=== PATIENT | female | born 1950 | race Caucasian/White ===

== ENCOUNTER → 2020-11-12 | Outpatient (CLI) | payer MEDICARE, BC, OTHER ==
[~2020-11-12] MED LIST: ACETAMINOPHEN500 MG PO; AMARYL 2MG TABLE2 MG PO; ASPIR 8181 MG PO; BRILINTA 90 MG90 MG PO; BUMETANIDE1 MG PO; CARVEDILOL12.5 MG PO; COREG 3.125M3.125 MG PO; ELIQUIS 2.5 MG2.5 MG PO; FARXIGA10 MG PO; FLOVENT DISKUS50 MCG INH; GLIMEPIRIDE4 MG PO; HYDROCHLOROTHIA25 MG PO; HYDROCODON-ACE1 EAC2 PO; ISOSORBIDE MONO30 MG PO; ISOSORBIDE MONO60 MG PO; LANTUS INS100 UTS/M1 SC; LEVEMIR100 UNIT/1 SC; LEVOTHYROXINE50 MCG PO; LIPITOR TAB 1010 MG PO; LISINOPRIL40 MG PO; METFORMIN HCL1000 MG PO; NITROSTAT0.4 MG SL; NOVOLOG100 UNIT/1 SQ; OMEGA 3 1,0001 EACH PO; PLAVIX75 MG PO; TRAMADOL HCL50 MG PO; VICTOZA 1818 MG/3 ML SC
[2020-11-13 11:14] LABS: CREATININE, URINE 79.8 mg/dL (Not Estab.)
== END ==
LOC: LAB 14:36
PROVIDERS: Internal Medicine Nephrology
DX: M54.9 Dorsalgia, unspecified (principal); N18.9 Chronic kidney disease, unspecified; M51.34 Other intervertebral disc degeneration, thoracic region
CPT/HCPCS: 36415; 72072; 80053; 81001; 82043; 82570; 84156

== ENCOUNTER 2021-01-09 16:01 | Inpatient (IN) | payer MEDICARE, BC, OTHER ==
[~2021-01-09] VITALS: Ht 170.2 cm; Wt 89.4 kg
[~2021-01-09 16:01] MED LIST changes: -BRILINTA 90 MG90 MG PO; -BUMETANIDE1 MG PO; -CARVEDILOL12.5 MG PO; -GLIMEPIRIDE4 MG PO; -ISOSORBIDE MONO60 MG PO; -PLAVIX75 MG PO
[2021-01-09 17:14] LABS: RED BLOOD COUNT 4.36 M/UL (4.00-5.10); WHITE BLOOD COUNT 9.3 K/UL (4.5-11.0)
[2021-01-09] MEDS ORDERED: BUMETANIDE1 MG PO (21:11)
[2021-01-09] MEDS ORDERED: GLIMEPIRIDE4 MG PO (21:12)
[2021-01-09] MEDS ORDERED: HYDROCHLOROTHIA25 MG PO (21:12)
[2021-01-10 02:46] LABS: HEMOGLOBIN 11.2 gm/dl (12.3-15.3); WHITE BLOOD COUNT 9.3 K/UL (4.5-11.0)
[2021-01-10 03:02] LABS: RED BLOOD COUNT 3.79 M/UL (4.00-5.10)
[2021-01-10 04:00] LABS: BUN/CREATININE RATIO 23 (0-10)
[2021-01-11 02:31] LABS: HEMOGLOBIN 10.9 gm/dl (12.3-15.3); RED BLOOD COUNT 3.63 M/UL (4.00-5.10); WHITE BLOOD COUNT 7.7 K/UL (4.5-11.0)
[2021-01-12 00:56] LABS: HEMOGLOBIN 10.9 gm/dl (12.3-15.3); RED BLOOD COUNT 3.66 M/UL (4.00-5.10); WHITE BLOOD COUNT 8.2 K/UL (4.5-11.0)
[2021-01-13 03:31] LABS: HEMOGLOBIN 11.1 gm/dl (12.3-15.3); RED BLOOD COUNT 3.77 M/UL (4.00-5.10); WHITE BLOOD COUNT 8.3 K/UL (4.5-11.0)
[2021-01-13] MEDS ORDERED: ISOSORBIDE MONO60 MG PO (10:03)
[2021-01-13] MEDS ORDERED: METFORMIN HCL1000 MG PO (10:03)
[2021-01-13] MEDS ORDERED: BRILINTA 90 MG90 MG PO (10:03)
[2021-01-13] MEDS ORDERED: CARVEDILOL12.5 MG PO (10:03)
[2021-01-13] MEDS ORDERED: PLAVIX75 MG PO (11:41)
== END 2021-01-13 12:27 | disposition home or self-care (01) | DRG 247 ==
LOC: ER1 16:01 → PROG CARE 18:37 → CDU 18:37 → PROG CARE 22:59
PROVIDERS: Internal Medicine; Internal Medicine Cardiovascular Disease; Preventive Medicine Occupational Medicine; ADMIT Family Medicine
PROC: B24BZZ4 Ultrasonography of Heart with Aorta, Transesophageal (ICD-10-PCS; 2021-01-10)
PROC: 4A023N7 Measurement of Cardiac Sampling and Pressure, Left Heart, Percutaneous Approach (ICD-10-PCS; 2021-01-11)
PROC: 027034Z Dilation of Coronary Artery, One Artery with Drug-eluting Intraluminal Device, Percutaneous Approach (ICD-10-PCS; principal; 2021-01-12)
PROC: 02703ZZ Dilation of Coronary Artery, One Artery, Percutaneous Approach (ICD-10-PCS; 2021-01-12)
DX: I21.4 Non-ST elevation (NSTEMI) myocardial infarction (principal); E87.2 Acidosis; F11.20 Opioid dependence, uncomplicated; N17.9 Acute kidney failure, unspecified; I47.1 Supraventricular tachycardia; Z20.822 Contact with and (suspected) exposure to COVID-19; E78.00 Pure hypercholesterolemia, unspecified; Z96.649 Presence of unspecified artificial hip joint; E03.9 Hypothyroidism, unspecified; N18.30 Chronic kidney disease, stage 3 unspecified; I12.9 Hypertensive chronic kidney disease with stage 1 through stage 4 chronic kidney disease, or unspecified chronic kidney disease; I07.1 Rheumatic tricuspid insufficiency; I25.5 Ischemic cardiomyopathy; E11.22 Type 2 diabetes mellitus with diabetic chronic kidney disease; E87.5 Hyperkalemia; E83.42 Hypomagnesemia; E78.5 Hyperlipidemia, unspecified; E05.90 Thyrotoxicosis, unspecified without thyrotoxic crisis or storm; I44.7 Left bundle-branch block, unspecified; E78.1 Pure hyperglyceridemia; Z98.890 Other specified postprocedural states; Z79.4 Long term (current) use of insulin; Z98.42 Cataract extraction status, left eye; Z98.41 Cataract extraction status, right eye; Z98.84 Bariatric surgery status; Z82.3 Family history of stroke; Z83.3 Family history of diabetes mellitus; Z80.0 Family history of malignant neoplasm of digestive organs; Z82.49 Family history of ischemic heart disease and other diseases of the circulatory system
CPT/HCPCS: ECHO; 36415; 71045; 80048; 80053; 80061; 81001; 82550; 82553; 82962; 83036; 83690; 83735; 83874; 83880; 84484; 85025; 85027; 85347; 85379; 85610; 85652; 85730; 86140; 87086; 92978; 93005; 93306; 94760; 96374; 96375; 96376; 99152; 99153; 99285; C1725; C1753; C1769; C1874; C1887; C1894; C9600; G0378; J0696; J1644; J2250; J2405; J3246; J7030; Q9965; U0002

== ENCOUNTER → 2021-02-12 | Outpatient (CLI) | payer MEDICARE, BC, OTHER ==
[~2021-02-12] MED LIST changes: +BRILINTA 90 MG90 MG PO; +BUMETANIDE1 MG PO; +CARVEDILOL12.5 MG PO; +GLIMEPIRIDE4 MG PO; +ISOSORBIDE MONO60 MG PO; +PLAVIX75 MG PO
[2021-02-13 11:14] LABS: CREATININE, URINE 86.8 mg/dL (Not Estab.)
== END ==
LOC: LAB 14:12
PROVIDERS: Internal Medicine Nephrology
DX: N18.9 Chronic kidney disease, unspecified (principal)
CPT/HCPCS: 36415; 80053; 81001; 82043; 82570; 84156

== ENCOUNTER 2021-06-30 11:27 | Inpatient (IN) | payer MEDICARE, BC, OTHER ==
[~2021-06-30] VITALS: Ht 170.2 cm; Wt 89.4 kg
[~2021-06-30 11:27] MED LIST changes: -LEVOTHYROXINE50 MCG PO; +LEVOTHYROXINE75 MCG PO; -LIPITOR TAB 1010 MG PO; +LIPITOR TAB 2020 MG PO; +LISINOPRIL20 MG PO; -LISINOPRIL40 MG PO
[2021-06-30 11:57] LABS: HEMOGLOBIN 11.3 gm/dl (12.3-15.3); RED BLOOD COUNT 3.79 M/UL (4.00-5.10); WHITE BLOOD COUNT 12.9 K/UL (4.5-11.0)
[2021-06-30] MEDS ORDERED: CARVEDILOL6.25 MG PO (14:15)
[2021-06-30] MEDS ORDERED: METFORMIN HCL1000 MG PO (14:17)
[2021-06-30] MEDS ORDERED: LEVEMIR100 UNIT/1 SQ ×2 (14:18)
--- NOTE | 2021-06-30 21:53 | NUR ---
CRITICAL LABS RECIEVED [facility] AND TROPONIN. CALLED TO NOTIFY DR. MORRISON AND SHE STATES THAT CARDIOLOGY SHOULD HAVE DONE THE TRANSFER ORDERS TO [place] AND TO NOTIFY THEM. CALLED YONATHAN AND NOTIFIED HER OF INCREASING TROPONIN AND LABS. STATES TO KEEP HEPARIN DRIP GOING AND TO ASK TAMIKO TO PLACE A TRANSFER ORDER. 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
--- NOTE | 2021-06-30 22:33 | NUR ---
PT ACCEPTED AT [facility] BUT NO AVAILABLE BED AT THIS TIME. WILL RETURN CALL IN AM TO LET US KNOW IF THEY HAVE ONE AVAILABLE.
--- NOTE | 2021-07-01 06:20 | NUR ---
REPORT CALLED TO THE [facility] TO GRISELDA CANTRELL RN. NUMBER IS [id number]. EMS CALLED.
== END 2021-07-01 08:03 | disposition short-term general hospital (02) | DRG 281 ==
LOC: ER1 11:27 → CDU 14:01 → PROG CARE 15:47
PROVIDERS: Internal Medicine Nephrology; Nurse Practitioner; ADMIT Family Medicine
DX: I97.190 Other postprocedural cardiac functional disturbances following cardiac surgery (principal); I21.A9 Other myocardial infarction type; N17.9 Acute kidney failure, unspecified; I13.0 Hypertensive heart and chronic kidney disease with heart failure and stage 1 through stage 4 chronic kidney disease, or unspecified chronic kidney disease; I50.22 Chronic systolic (congestive) heart failure; T82.218A Other mechanical complication of coronary artery bypass graft, initial encounter; Y83.9 Surgical procedure, unspecified as the cause of abnormal reaction of the patient, or of later complication, without mention of misadventure at the time of the procedure; Y92.89 Other specified places as the place of occurrence of the external cause; Z20.822 Contact with and (suspected) exposure to COVID-19; E87.5 Hyperkalemia; E78.5 Hyperlipidemia, unspecified; E11.22 Type 2 diabetes mellitus with diabetic chronic kidney disease; E11.65 Type 2 diabetes mellitus with hyperglycemia; I44.7 Left bundle-branch block, unspecified; E03.9 Hypothyroidism, unspecified; Z96.659 Presence of unspecified artificial knee joint; N18.30 Chronic kidney disease, stage 3 unspecified; I25.5 Ischemic cardiomyopathy; I07.1 Rheumatic tricuspid insufficiency; Z79.82 Long term (current) use of aspirin; Z98.49 Cataract extraction status, unspecified eye; Z82.49 Family history of ischemic heart disease and other diseases of the circulatory system; Z79.4 Long term (current) use of insulin; Z98.84 Bariatric surgery status; Z82.3 Family history of stroke; Z90.49 Acquired absence of other specified parts of digestive tract
CPT/HCPCS: 36415; 71045; 80048; 80053; 81001; 82550; 82553; 82570; 82962; 83605; 83874; 83880; 84133; 84156; 84300; 84484; 85025; 85379; 85610; 85730; 87040; 93005; 96374; 96375; 99285; J1644; J2270; J2543; J7030; U0002

== ENCOUNTER → 2021-08-20 | Outpatient (CLI) | payer MEDICARE, BC, OTHER ==
[~2021-08-20] MED LIST changes: +CARVEDILOL6.25 MG PO; +LEVEMIR100 UNIT/1 SQ
[2021-08-21 11:14] LABS: CREATININE, URINE 24.5 mg/dL (Not Estab.)
== END ==
LOC: LAB 12:55
PROVIDERS: Internal Medicine Nephrology
DX: N18.9 Chronic kidney disease, unspecified (principal)
CPT/HCPCS: 36415; 80053; 81001; 82043; 82570; 84156

== ENCOUNTER → 2021-09-03 | Outpatient (CLI) | payer MEDICARE, BC | LOC: HEART 5 14:58 | DX: R00.0 Tachycardia, unspecified (principal) ==

== ENCOUNTER → 2021-11-11 | Outpatient (CLI) | payer MEDICARE, BC ==
[2021-11-12 13:16] LABS: CREATININE, URINE 194.2 mg/dL (Not Estab.)
== END ==
LOC: LAB 13:38
PROVIDERS: Internal Medicine Nephrology
DX: N18.9 Chronic kidney disease, unspecified (principal)
CPT/HCPCS: 36415; 80053; 81001; 82043; 82570; 84156

== ENCOUNTER 2022-05-29 20:52 | Inpatient (IN) | payer MEDICARE, BC, OTHER ==
[~2022-05-29] VITALS: Ht 157.5 cm; Wt 91.0 kg
[~2022-05-29 20:52] MED LIST changes: +ATORVASTATIN CA80 MG PO; +CARVEDILOL25 MG PO; -CARVEDILOL6.25 MG PO; -LIPITOR TAB 2020 MG PO
[2022-05-29 22:30] LABS: HEMOGLOBIN 12.1 gm/dl (12.3-15.3); RED BLOOD COUNT 4.24 M/UL (4.00-5.10); WHITE BLOOD COUNT 8.4 K/UL (4.5-11.0)
[2022-05-30] MEDS ORDERED: BENZONATATE200 MG PO (10:56)
[2022-05-30] MEDS ORDERED: NITROSTAT0.4 MG SL (10:59)
[2022-05-30] MEDS ORDERED: ISOSORBIDE MON120 MG PO (10:59)
[2022-05-30] MEDS ORDERED: OMEGA 3 1,0001 EACH PO (11:00)
[2022-05-30] MEDS ORDERED: VITAMIN B-121000 MC3 PO (11:02)
[2022-05-30] MEDS ORDERED: BRILINTA90 MG PO (11:02)
[2022-05-30] MEDS ORDERED: VITAMIN A AND1 EACH PO (11:04)
[2022-05-30] MEDS ORDERED: NOVOLIN 70100 UNIT/1 SQ (12:12)
--- NOTE | 2022-05-30 21:59 | NUR ---
RECEIVED CALL FROM LAB REGARDING CRITICAL VALUES OF CARDIAC ENZYMES. VALUES ARE TRENDING DOWN . M.D. AWARE OF PREVIOUSLY HIGHER VALUES.
[2022-05-31 02:32] LABS: HEMOGLOBIN 10.7 gm/dl (12.3-15.3); RED BLOOD COUNT 3.73 M/UL (4.00-5.10)
--- NOTE | 2022-05-31 20:22 | NUR ---
RECEIVED BED 6104 . REPORT TO BERENICE. TRANSPORTED VIA BED WITH MONITOR. WITHOUT COMPLICATION.
[2022-06-01 02:24] LABS: HEMOGLOBIN 10.4 gm/dl (12.3-15.3); RED BLOOD COUNT 3.59 M/UL (4.00-5.10); WHITE BLOOD COUNT 7.4 K/UL (4.5-11.0)
--- NOTE | 2022-06-01 15:00 | NUR ---
SPOKE WITH KAT FROM [facility] RE: TRANSFER. DR CLINTON HAS ACCEPTED PT FOR TRANSFER. CURRENTLY NO BEDS AVAILABLE. KAT STATES SHE WILL UPDATE WHEN BED AVAILABLE
[2022-06-02 02:18] LABS: HEMOGLOBIN 10.2 gm/dl (12.3-15.3); RED BLOOD COUNT 3.54 M/UL (4.00-5.10); WHITE BLOOD COUNT 7.8 K/UL (4.5-11.0)
--- NOTE | 2022-06-02 12:58 | NUR ---
PTT, HEPARIN PROTOCOL LAB DRAW WAS DUE AT 0835 BUT A MIXING STUDY WAS ORDERED INSTEAD. NURSE CONTACTED LAB TO HAVE THIS FIXED AND THE PTT WILL BE DRAWN NOW.
== END 2022-06-02 18:36 | disposition short-term general hospital (02) | DRG 280 ==
LOC: ER1 20:52 → CDU 05-30 01:32 → CCU 05-30 01:32 → PROG CARE 05-31 14:13 → CCU 05-31 14:13 → PROG CARE 05-31 20:45
PROVIDERS: Family Medicine; Internal Medicine; Internal Medicine Nephrology; Physician Assistant Medical; ADMIT Family Medicine
PROC: B24BZZZ Ultrasonography of Heart with Aorta (ICD-10-PCS; principal; 2022-05-31)
PROC: 4A023N7 Measurement of Cardiac Sampling and Pressure, Left Heart, Percutaneous Approach (ICD-10-PCS; 2022-06-01)
PROC: B2111ZZ Fluoroscopy of Multiple Coronary Arteries using Low Osmolar Contrast (ICD-10-PCS; 2022-06-01)
DX: I13.0 Hypertensive heart and chronic kidney disease with heart failure and stage 1 through stage 4 chronic kidney disease, or unspecified chronic kidney disease (principal); I21.A1 Myocardial infarction type 2; I50.23 Acute on chronic systolic (congestive) heart failure; J96.01 Acute respiratory failure with hypoxia; I16.1 Hypertensive emergency; N17.9 Acute kidney failure, unspecified; I31.3 Pericardial effusion (noninflammatory); N18.30 Chronic kidney disease, stage 3 unspecified; Z96.653 Presence of artificial knee joint, bilateral; Z96.698 Presence of other orthopedic joint implants; E78.5 Hyperlipidemia, unspecified; E11.22 Type 2 diabetes mellitus with diabetic chronic kidney disease; E11.65 Type 2 diabetes mellitus with hyperglycemia; E03.9 Hypothyroidism, unspecified; I08.3 Combined rheumatic disorders of mitral, aortic and tricuspid valves; G89.29 Other chronic pain; E66.01 Morbid (severe) obesity due to excess calories; M54.9 Dorsalgia, unspecified; J30.2 Other seasonal allergic rhinitis; E87.5 Hyperkalemia; D63.1 Anemia in chronic kidney disease; I16.0 Hypertensive urgency; I44.7 Left bundle-branch block, unspecified; I25.5 Ischemic cardiomyopathy; I25.10 Atherosclerotic heart disease of native coronary artery without angina pectoris; Z86.16 Personal history of COVID-19; I25.2 Old myocardial infarction; Z95.5 Presence of coronary angioplasty implant and graft; Z98.1 Arthrodesis status; Z90.49 Acquired absence of other specified parts of digestive tract; Z79.01 Long term (current) use of anticoagulants; Z79.82 Long term (current) use of aspirin; Z79.4 Long term (current) use of insulin; Z98.42 Cataract extraction status, left eye; Z98.41 Cataract extraction status, right eye; Z83.3 Family history of diabetes mellitus; Z82.49 Family history of ischemic heart disease and other diseases of the circulatory system; Z84.1 Family history of disorders of kidney and ureter; Z87.01 Personal history of pneumonia (recurrent); Z90.710 Acquired absence of both cervix and uterus; Z98.0 Intestinal bypass and anastomosis status
CPT/HCPCS: ECHO; 36415; 36600; 71045; 80048; 80053; 82550; 82553; 82728; 82803; 82962; 83036; 83540; 83550; 83615; 83735; 83880; 84484; 85025; 85027; 85379; 85610; 85730; 86140; 93005; 93306; 93970; 94640; 94664; 96374; 96375; 96376; 99152; 99285; C1769; C1887; C1894; G0378; J1644; J2250; J2405; J3010; J3475; J7040; Q9965; U0002